=== PATIENT | male | born 1955 | race Caucasian/White ===

== ENCOUNTER 2022-05-07 11:44 | Emergency (ER) | payer BC, MEDICARE, OTHER ==
[2022-05-07] MEDS ORDERED: Fluorescein Opthalmic Strip ONE (12:09)
[2022-05-07] MEDS ORDERED: Tetracaine 0.5% PF 4 ML BOT ONE (12:09)
[2022-05-07] MEDS ORDERED: Morphine 4 MG/ML VIAL ONE (14:16)
[2022-05-07] MEDS ORDERED: Ondansetron ODT 4 MG TAB ONE (14:16)
== END 2022-05-07 15:06 | disposition home or self-care (01) ==
LOC: BURERS 11:44
DX: T26.92XA Corrosion of left eye and adnexa, part unspecified, initial encounter (principal); T26.91XA Corrosion of right eye and adnexa, part unspecified, initial encounter; I10 Essential (primary) hypertension
CPT/HCPCS: 96372; 99283; J2270; Q0162